=== PATIENT | male | born 2000 | race Caucasian/White ===

== ENCOUNTER 2021-06-12 00:47 | Emergency (ER) | payer BC ==
[2021-06-12 00:57] VITALS: TEMP 99.5
[2021-06-12] MEDS ORDERED: IPRATROPIUM-ALBUTEROL 3 ML NEB INHALATION STA (01:13)
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
--- NOTE | 2021-06-12 01:41 | XR ---
EXAMINATION TYPE: XR chest 2V DATE OF EXAM: 06/12/2021 COMPARISON: NONE HISTORY: Dysrhythmia TECHNIQUE: 2 views FINDINGS: Heart and mediastinum are normal. Lungs are clear. Diaphragm is normal bony thorax appears normal. IMPRESSION: Normal chest.
[2021-06-12 01:46] LABS: Basophils # (A) 0.1 k/uL (0-0.2); Basophils % (A) 1 %; Eosinophils # (A) 0.5 k/uL (0-0.7); Eosinophils % (A) 6 %; HCT 50.5 % (39.0-53.0); HGB 17.3 gm/dL (13.0-17.5); Lymphocytes # (A) 2.6 k/uL (1.0-4.8); Lymphocytes % (A) 31 %; MCH 30.6 pg (25.0-35.0); MCHC 34.3 g/dL (31.0-37.0); MCV 89.1 fL (80.0-100.0); Mean Platelet Volume 6.6; Monocytes # (A) 0.5 k/uL (0-1.0); Monocytes % (A) 6 %; Neutrophils # (A) 4.5 k/uL (1.3-7.7); Neutrophils % (A) 54 %; Platelet Count 338 k/uL (150-450); RBC 5.66 m/uL (4.30-5.90); RDW 12.8 % (11.5-15.5); WBC 8.2 k/uL (3.8-10.6)
[2021-06-12 01:55] LABS: African American GFR (CKD) >90 (>60 ml/min/1.73 sqM); Anion Gap 10 mmol/L; Blood Urea Nitrogen 14 mg/dL (9-20); Calcium 9.9 mg/dL (8.4-10.2); Carbon Dioxide 24 mmol/L (22-30); Chloride 106 mmol/L (98-107); Glucose 101 mg/dL (74-99); Non-African American GFR(CKD) >90 (>60 ml/min/1.73 sqM); Sodium 140 mmol/L (137-145)
[2021-06-12 02:41] VITALS: BP 132/87; PULSE 87; RESP 18
== END 2021-06-12 02:41 | disposition home or self-care (01) ==
LOC: EC 00:47
DX: J69.8 Pneumonitis due to inhalation of other solids and liquids (principal); Z88.0 Allergy status to penicillin
CPT/HCPCS: 36415; 71046; 80048; 82375; 85025; 94640; 99285